=== PATIENT | female | born 1975 | race Caucasian/White ===

== ENCOUNTER 2016-05-14 18:41 | Emergency (ER) | payer SELFPAY ==
[~2016-05-14] VITALS: Ht 154.9 cm; Wt 68.0 kg
[2016-05-14 18:52] VITALS: BP 165/110
--- NOTE | 2016-05-14 19:22 | NUR ---
PT TO BED 5 AT THIS TIME.
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
[2016-05-14] MEDS ORDERED: DIAZEPAM 5 MG TAB PO ONE (19:35)
[2016-05-14] MEDS ORDERED: KETOROLAC 30 MG/ML VIAL IM ONE (19:35)
--- NOTE | 2016-05-14 19:36 | NUR ---
Dr. Rubin evaluating patient at bedside.
--- NOTE | 2016-05-14 20:10 | NUR ---
Patient discharged with v/s stable. Written and verbal after care instructions given and explained. Patient alert, oriented and verbalized understanding of instructions. Ambulatory with steady gait. All questions addressed prior to discharge. ID band removed. Patient advised to follow up with PMD. Rx of NAPROSYN 500MG AND VALIUM 5MG given. Patient educated on indication of medication including possible reaction and side effects. Opportunity to ask questions provided and answered.
[2016-05-14 20:11] VITALS: BP 142/89
== END 2016-05-14 20:10 | disposition home or self-care (01) ==
LOC: MED 18:41
DX: M54.6 Pain in thoracic spine (principal)
CPT/HCPCS: 81002; 81025; 99283; J1885

== ENCOUNTER 2022-02-25 08:16 | Emergency (ER) | payer MEDICAID ==
[~2022-02-25] VITALS: Ht 157.5 cm; Wt 71.2 kg
[2022-02-25 08:42] VITALS: BP 114/68
--- NOTE | 2022-02-25 08:48 | NUR ---
COVID, FLU SWABS DONE.
[2022-02-25] MEDS ORDERED: ACETAMINOPHEN EXTRA STRENGTH 500 MG TAB PO ONE (08:50)
--- NOTE | 2022-02-25 08:53 | NUR ---
BIB SELF C/O COUGH, FEVER, WALLACE, SORE THROAT X TODAY. ORAL TEMP 101.2 AT THIS TIME. PMH: DENIES
[2022-02-25] MEDS ORDERED: PROM118S5 PO (12:00)
[2022-02-25] MEDS ORDERED: KETOROLAC 30 MG/ML VIAL IM ONE (12:00)
[2022-02-25] MEDS ORDERED: BENZ-301 PO (12:00)
[2022-02-25] MEDS ORDERED: IBUP-2213 PO (12:00)
--- NOTE | 2022-02-25 12:22 | NUR ---
Patient discharged with v/s stable. Written and verbal after care instructions ABOUT VIRAL ILLNESS given and explained. Patient alert, oriented and verbalized understanding of instructions. Ambulatory with steady gait. All questions addressed prior to discharge. ID band removed. Patient advised to follow up with PMD. Rx of BENZOCAINE/MENTHOL, IBURPOFEN, MOTRIN given. Patient educated on indication of medication including possible reaction and side effects. Opportunity to ask questions provided and answered.
[2022-02-25 12:23] VITALS: BP 114/68
== END 2022-02-25 12:22 | disposition home or self-care (01) ==
LOC: MED 08:16
DX: B34.9 Viral infection, unspecified (principal); Z20.822 Contact with and (suspected) exposure to COVID-19
CPT/HCPCS: 87426; 87804; 96372; 99283; J1885

== ENCOUNTER 2022-03-26 19:48 | Emergency (ER) | payer MEDICAID ==
[~2022-03-26] VITALS: Ht 154.9 cm; Wt 68.0 kg
[~2022-03-26 19:48] MED LIST: BENZ-301 PO; IBUP-2213 PO; PROM118S5 PO
[2022-03-26 20:29] VITALS: BP 130/90
--- NOTE | 2022-03-26 20:33 | NUR ---
TO LOBBY A/W BED AMBULATORY
[2022-03-26 21:20] LABS: APPEARANCE,URINE CLEAR (CLEAR); BILIRUBIN,URINE NEGATIVE (NEGATIVE); BLOOD, URINE 1+ (NEGATIVE); COLOR,URINE YELLOW (YELLOW); LEUKOCYTE ESTERASE ,URINE NEGATIVE (NEGATIVE); NITRITE, URINE NEGATIVE (NEGATIVE); UGLUCOSE NEGATIVE (NEGATIVE)
[2022-03-26 21:30] LABS: WBC,URINE 0-5 /HPF (0-5)
--- NOTE | 2022-03-26 23:35 | NUR ---
Patient resting in bed, A/Ox4, chest rise and fall symmetrical, no s/s of distress.
[2022-03-26] MEDS ORDERED: KETOROLAC 60 MG/2 ML VIAL IM ONE ×2 (23:40→23:42)
[2022-03-26] MEDS ORDERED: LID5T TP (23:41)
[2022-03-26] MEDS ORDERED: IBUP-2213 PO (23:41)
[2022-03-26] MEDS ORDERED: CYCL-711 PO (23:41)
--- NOTE | 2022-03-26 23:45 | NUR ---
Dr. Phillips at bedside with patient.
[2022-03-26 23:56] VITALS: BP 127/85
== END 2022-03-26 23:58 | disposition home or self-care (01) ==
LOC: MED 19:48
DX: S39.012A Strain of muscle, fascia and tendon of lower back, initial encounter (principal); X58.XXXA Exposure to other specified factors, initial encounter; Y93.89 Activity, other specified; Y92.89 Other specified places as the place of occurrence of the external cause; Y99.8 Other external cause status
CPT/HCPCS: 81001; 96372; 99283; J1885

== ENCOUNTER 2022-09-16 07:20 | Emergency (ER) | payer MEDICAID ==
[~2022-09-16] VITALS: Ht 165.1 cm; Wt 69.9 kg
[~2022-09-16 07:20] MED LIST changes: +CYCL-711 PO; +LID5T TP
[2022-09-16 07:30] VITALS: BP 155/94
[2022-09-16] MEDS ORDERED: ACETAMINOPHEN EXTRA STRENGTH 500 MG TAB PO ONE (07:55)
[2022-09-16] MEDS ORDERED: PHENAZOPYRIDINE 100 MG TAB PO ONE (07:55)
[2022-09-16 08:01] LABS: APPEARANCE,URINE CLEAR (CLEAR); BILIRUBIN,URINE NEGATIVE (NEGATIVE); BLOOD, URINE 3+ (NEGATIVE); COLOR,URINE YELLOW (YELLOW); LEUKOCYTE ESTERASE ,URINE 3+ (NEGATIVE); NITRITE, URINE NEGATIVE (NEGATIVE); UGLUCOSE NEGATIVE (NEGATIVE)
--- NOTE | 2022-09-16 08:01 | NUR ---
Medicated as ordered. Pt. sitting in chair with no difficulty. No acute distress.
[2022-09-16] MEDS ORDERED: NAPR-1704 PO (08:10)
[2022-09-16] MEDS ORDERED: NITR100C7 PO (08:10)
[2022-09-16] MEDS ORDERED: PHEN-1877 PO (08:10)
[2022-09-16 08:25] LABS: RBC,URINE 11-20 (MOD) /HPF (0-5)
--- NOTE | 2022-09-16 08:53 | NUR ---
Patient discharged with v/s stable. Written and verbal after care instructions given and explained. Patient verbalized understanding. Ambulatory with steady gait. All questions addressed prior to discharge. Advised to follow up with PMD. Pt. stable for d/c, awake and alert. No acute distress. States feeling better after medication.
== END 2022-09-16 08:53 | disposition home or self-care (01) ==
LOC: MED 07:20
DX: N39.0 Urinary tract infection, site not specified (principal); Z79.899 Other long term (current) drug therapy; Z98.890 Other specified postprocedural states
CPT/HCPCS: 81001; 81025; 87086; 99283

== ENCOUNTER 2023-10-22 07:17 | Emergency (ER) | payer MEDICAID ==
[~2023-10-22] VITALS: Ht 160 cm; Wt 70.5 kg
[~2023-10-22 07:17] MED LIST changes: +NAPR-1704 PO; +NITR100C7 PO; +PHEN-1877 PO
[2023-10-22 07:30] VITALS: BP 158/93; PULSE 73; RESP 18; TEMP 97.8; O2SAT 99
[2023-10-22] MEDS ORDERED: DICL20GE TP (07:56)
[2023-10-22] MEDS ORDERED: NAPR-337 PO (07:56)
[2023-10-22] MEDS ORDERED: METH-1681 PO (07:56)
[2023-10-22] MEDS: KETOROLAC 30 MG/ML VIAL IM ONE (08:08)
[2023-10-22] MEDS: LIDOCAINE 5% 1 EA PATCH TP ONE (08:08)
[2023-10-22 08:15] VITALS: BP 158/93; PULSE 73; RESP 18; TEMP 97.8; O2SAT 99
== END 2023-10-22 08:16 | disposition home or self-care (01) ==
LOC: MED 07:17
DX: M62.830 Muscle spasm of back (principal); Z79.1 Long term (current) use of non-steroidal anti-inflammatories (NSAID); Z79.899 Other long term (current) drug therapy
CPT/HCPCS: 81025; 96372; 99283; J1885

== ENCOUNTER 2024-01-18 21:52 | Emergency (ER) | payer MEDICAID ==
[~2024-01-18] VITALS: Ht 154.9 cm; Wt 72.3 kg
[~2024-01-18 21:52] MED LIST changes: +DICL20GE TP; +METH-1681 PO; +NAPR-337 PO
[2024-01-18 22:17] VITALS: BP 167/98; PULSE 67; RESP 18; TEMP 98.1; O2SAT 99
[2024-01-18] MEDS: KETOROLAC 30 MG/ML VIAL IM ONE (23:07)
[2024-01-18] MEDS ORDERED: NAPR-1704 PO (23:39)
[2024-01-18] MEDS ORDERED: DICL20GE TP (23:39)
[2024-01-18 23:53] VITALS: BP 167/98; PULSE 67; RESP 18; TEMP 98.1; O2SAT 99
== END 2024-01-18 23:53 | disposition home or self-care (01) ==
LOC: MED 21:52
DX: M79.18 Myalgia, other site (principal); Z79.899 Other long term (current) drug therapy
CPT/HCPCS: 81025; 96372; 99283; J1885